=== PATIENT | male | born 1945 | race Caucasian/White ===

== ENCOUNTER 2017-04-10 14:38 | Observation (INO) ==
--- NOTE | 2017-04-10 14:55 | Emergency Department Report ---
General Adult HPI - General Stated complaint: poss stroke Time Seen by Provider: 04/10/17 14:42 Source: patient Mode of arrival: ambulatory Limitations: no limitations - History of Present Illness HPI narrative: 71-year-old male presents to the emergency department with a chief complaint of tingling on the right side of his body and right-sided facial droop. Rations states that he began experiencing symptoms 2 days ago. Symptoms have been intermittent in nature since onset. He is unsure exactly how long the symptoms have lasted. Patient states that his symptoms return to this morning. Patient states he began experiencing symptoms at approximately lunchtime today which have resolved upon arrival to the emergency department. He denies any pain or discomfort. He denies any exacerbating or remitting factors. No other complaints or associated symptoms. He was at home when the symptoms began. - Related Data Home Medications Medication Instructions Recorded Confirmed Aspirin 325 mg PO DAILY 04/10/17 04/10/17 Calcium Polycarbophil [Fiber] 625 mg PO DAILY 04/10/17 04/10/17 Lactobacillus Acidophilus 1 each PO DAILY 04/10/17 04/10/17 [Probiotic] Turmeric Root Extract [Turmeric] 500 mg PO DAILY 04/10/17 04/10/17 Allergies Allergy/AdvReac Type Severity Reaction Status Date / Time No Known Allergies Allergy Verified 04/10/17 15:11 Review of Systems Constitutional: Denies: fever, chills Eyes: Denies: eye pain, vision change ENT: Denies: ear pain, throat pain Cardiovascular: Denies: chest pain, palpitations Respiratory: Denies: cough, dyspnea Gastrointestinal: Denies: abdominal pain, nausea, vomiting, diarrhea Genitourinary: Denies: urgency, dysuria Musculoskeletal: Denies: back pain, arthralgia Integumentary: Denies: erythema, rash Neurological: Reports: paresthesias (resolved. ). Denies: headache, numbness Psychiatric: Denies: anxiety, depression Endocrine: Denies: fatigue, heat or cold intolerance Hematological/Lymphatic: Denies: easy bruising, lymphadenopathy Allergic/Immunologic: Denies: facial swelling, urticaria PFSH Negative. Surgical History: Negative. Family History: Reviewed and Noncontributory. - Social History Smoking status: Former smoker Substance use type: does not use Alcohol intake frequency: a few times a week Physical Exam - Limitations Limitations: no limitations - General General appearance: alert, in no apparent distress - Normal Exams: Head:: Normocephalic without trauma Eyes:: Pupils are PERRLA w/ EOMI, No scleral icterus, irritation, or foreign bodies noted ENMT:: No facial trauma, nasal exudates, pharyngeal erythema, or exudates are noted Dental: No fractured, loose, or missing teeth noted Neck:: Full range of motion, without adenopathy, JVD, bruits or thyromegaly Chest/Respirations:: Clear all grimm, with good airflow, and symmetry bilaterally Cardiovascular:: Regular rate and rhythm, without murmur or gallop, Pulses 2+ all extremities, capillary refill, <2 seconds all extremities Abdomen:: Bowel sounds positive, soft, non-tender, non-distended, no hepatosplenomegaly, masses or bruits noted Lymphatic:: No lymphadenopathy, or lymphedema noted Musculoskeletal:: No tenderness, or deformity noted, good range of motion, all extremities Integumentary:: No rashes, hives, or bruising noted, hair and nails, without abnormality Neurological:: Patient is alert (Alert and oriented x 3. CN 2-12 intact. Normal strength. Normal sensation. Normal speech. Normal coordination. Normal Gait. Normal Motor. Reflexes 2/4 in all ext. Absent babinski bilat. ), and oriented, cranial nerves, motor/sensory/cerebellar, exams w/o gross deficits , to observation Psychiatric:: Patient exhibits, appropriate attention, emotion and affect Course Vital Signs Temperature 97.7 F 04/10/17 14:39 Pulse Rate 87 04/10/17 14:39 Respiratory Rate 24 04/10/17 14:39 Blood Pressure 175/81 H 04/10/17 14:39 Pulse Oximetry 93 04/10/17 14:39 Temperature 97.7 F 04/10/17 14:39 Pulse Rate 87 04/10/17 14:39 Respiratory Rate 24 04/10/17 14:39 Blood Pressure 175/81 H 04/10/17 14:39 Pulse Oximetry 93 04/10/17 14:39 Medical Decision Making - MDM Narrative Medical decision making narrative: Labs / imaging were discussed in detail with the patient and family and questions are answered. Patient has taken 325 mg of aspirin which he does not normally take today prior to arrival to the emergency Department. Patient is discussed with Dr. Casillas and admitted to her service in improved condition. Patient is in agreement with the current plan of management. No further orders from accepting physician who is in agreement with the current plan of management. Patient is not a candidate for TPA as he is asymptomatic upon arrival to the emergency department. His NIH is 0. - Differential Diagnosis TIA, CVA, Metabolic Process, UTI - Lab Data Result diagrams: 04/10/17 14:55 04/10/17 14:55 Lab Results 04/10/17 04/10/17 04/10/17 Range/Units 14:55 14:55 14:55 WBC 7.5 (4.5-11.0) T/MM3 RBC 4.62 (4.50-5.90) M/MM3 Hgb 13.6 (13.5-17.5) GM/DL Hct 42.0 (41-53) % MCV 90.9 (80-100) UM3 MCH 29.4 (26-34) UUG MCHC 32.4 (31-37) GM/DL RDW Std Deviation 43.8 (36.9-50.2) FL Plt Count 256 (130-400) T/MM3 MPV 9.6 (9.4-12.4) UM3 Immature Gran % (Auto) 0.1 (0.0-0.5) % Neut % (Auto) 65.3 (33-66) % Lymph % (Auto) 27.5 (23-45) % [place] % (Auto) 5.9 (0-9.0) % Eos % (Auto) 0.7 (0-4) % Baso % (Auto) 0.5 (0-2) % Neut # (Auto) 4.9 (1.8-7.7) T/MM3 Lymph # (Auto) 2.1 (1-4.8) T/MM3 [place] # (Auto) 0.4 (0-0.8) T/MM3 Eos # (Auto) 0.1 (0-0.5) T/MM3 Baso # (Auto) 0.0 (0-0.2) T/MM3 Abs Immat Gran (auto) 0.01 (0.00-0.03) T/MM3 INR 1.08 (0.99-1.21) APTT 28.6 (24-36) SEC Turbidity < 20 (0-20) Sodium 141 (134-144) MEQ/L Potassium 4.5 (3.6-5) MEQ/L Chloride 106 (98-107) MEQ/L Carbon Dioxide 23 (22-30) MEQ/L Anion Gap 12 (5-15) MEQ/L BUN 14.0 (9-20) MG/DL Creatinine 0.8 (0.8-1.5) MG/DL GFR Calculation 96 BUN/Creatinine Ratio 18 (6-26) RATIO Glucose 156 H (75-110) MG/DL Calculated Osmolality 275 (261-280) MOSM/KG Calcium 9.2 (8.4-10.2) MG/DL Total Bilirubin 0.70 (0.20-1.30) MG/DL Icterus Index < 2 (0-7) AST 29 (17-59) U/L ALT 32 (21-72) U/L Alkaline Phosphatase 65 (38-126) U/L Troponin I < 0.012 (0-0.12) ng/ml Total Protein 7.7 (6.3-8.2) G/DL Albumin 4.4 (3.5-5.0) G/DL Globulin 3.3 (2.4-3.6) G/DL Albumin/Globulin Ratio 1.3 (1.1-2.2) RATIO Specimen Hemolysis 136 H (0-25) Ur Collection Type Urine Color (YELLOW) Urine Clarity Urine pH (5.0-8.0) Ur Specific [place] (1.015-1.025) Urine Protein (NEGATIVE) Urine Glucose (UA) (NEGATIVE) Urine Ketones (NEGATIVE) Urine Occult Blood (NEGATIVE) Urine Nitrate (NEGATIVE) Urine Bilirubin (NEGATIVE) Urine Urobilinogen (NORMAL) EU/DL Ur Leukocyte Esterase (NEGATIVE) Urinalysis Comment 04/10/17 Range/Units 15:40 WBC (4.5-11.0) T/MM3 RBC (4.50-5.90) M/MM3 Hgb (13.5-17.5) GM/DL Hct (41-53) % MCV (80-100) UM3 MCH (26-34) UUG MCHC (31-37) GM/DL RDW Std Deviation (36.9-50.2) FL Plt Count (130-400) T/MM3 MPV (9.4-12.4) UM3 Immature Gran % (Auto) (0.0-0.5) % Neut % (Auto) (33-66) % Lymph % (Auto) (23-45) % [place] % (Auto) (0-9.0) % Eos % (Auto) (0-4) % Baso % (Auto) (0-2) % Neut # (Auto) (1.8-7.7) T/MM3 Lymph # (Auto) (1-4.8) T/MM3 [place] # (Auto) (0-0.8) T/MM3 Eos # (Auto) (0-0.5) T/MM3 Baso # (Auto) (0-0.2) T/MM3 Abs Immat Gran (auto) (0.00-0.03) T/MM3 INR (0.99-1.21) APTT (24-36) SEC Turbidity (0-20) Sodium (134-144) MEQ/L Potassium (3.6-5) MEQ/L Chloride (98-107) MEQ/L Carbon Dioxide (22-30) MEQ/L Anion Gap (5-15) MEQ/L BUN (9-20) MG/DL Creatinine (0.8-1.5) MG/DL GFR Calculation BUN/Creatinine Ratio (6-26) RATIO Glucose (75-110) MG/DL Calculated Osmolality (261-280) MOSM/KG Calcium (8.4-10.2) MG/DL Total Bilirubin (0.20-1.30) MG/DL Icterus Index (0-7) AST (17-59) U/L ALT (21-72) U/L Alkaline Phosphatase (38-126) U/L Troponin I (0-0.12) ng/ml Total Protein (6.3-8.2) G/DL Albumin (3.5-5.0) G/DL Globulin (2.4-3.6) G/DL Albumin/Globulin Ratio (1.1-2.2) RATIO Specimen Hemolysis (0-25) Ur Collection Type Urine, void-cc/notcc Urine Color Yellow (YELLOW) Urine Clarity Clear Urine pH 6.0 (5.0-8.0) Ur Specific [place] 1.015 (1.015-1.025) Urine Protein Negative (NEGATIVE) Urine Glucose (UA) Negative (NEGATIVE) Urine Ketones Negative (NEGATIVE) Urine Occult Blood Negative (NEGATIVE) Urine Nitrate Negative (NEGATIVE) Urine Bilirubin Negative (NEGATIVE) Urine Urobilinogen 0.2 (NORMAL) EU/DL Ur Leukocyte Esterase Negative (NEGATIVE) Urinalysis Comment Microscopic not ind. - Radiology Data CT HEAD - No acute processes. CXR - No acute processes. - EKG Data EKG #1 EKG results narrative: Sinus rhythm. 82 bpm. No STEMI. Disposition Clinical Impression: TIA (transient ischemic attack) Qualifiers: Transient cerebral ischemia type: other Qualified Code(s): G45.8 - Other transient cerebral ischemic attacks and related syndromes Disposition: 02 To [facility] Condition: Improved Time of Disposition: 16:10 (Admit. Dr. Casillas. ) - Seen By: physician
[2017-04-10] MEDS: SALINE FLUSH 10ml SYRINGE IVF PRN ×2 (15:05→18:40)
--- NOTE | 2017-04-10 15:33 | CT Scan Report ---
Indication: tia symptoms PROCEDURE: CT head/brain wo con: Encounter: Initial Comparison: None Technique: Axial CT images through the head were performed without contrast. Iterative Reconstruction dose reducing technique was utilized. FINDINGS: The ventricles are of normal size, shape, and contour for the patient's age. There are scattered areas of low attenuation in the white matter which most likely represent changes from chronic microvascular ischemia. The brainstem, cerebellum, and cerebral hemispheres otherwise have a normal morphology and CT attenuation. There is no evidence of midline displacement. No hemorrhage, signs of acute territorial stroke, mass effect, mass lesions, or edema is evident. The visualized portions of the skull base, midface, and calvarium demonstrate no abnormality. The paranasal sinuses are well aerated and free of significant disease. The tympanic and mastoid cavities appear normal. IMPRESSION: No acute intracranial abnormality or hemorrhage. If there is continued clinical concern for acute ischemia, MRI would be more sensitive for further evaluation. .
--- NOTE | 2017-04-10 15:33 | XRay Report ---
Indication: tia PROCEDURE: XR chest 1V: Encounter: Initial Comparison: None FINDINGS: The lungs are clear. There is no abnormal airspace opacity, pleural effusion or pneumothorax identified. The heart size, pulmonary vasculature and mediastinum are within normal limits. No significant skeletal abnormality is seen. IMPRESSION: No acute cardiopulmonary abnormality. .
--- NOTE | 2017-04-10 17:01 | History & Physical Report ---
History of Present Illness Date: 04/10/17 Chief complaint: R sided weakness HPI: Mr. Abdi is a 71 yo male who presents to ED with his daughter for R sided weakness. States sxs started 2 days ago with complete R sided numbness which lasted for about an hour, resolved and then returned again an hour later. Yesterday he had some nausea and "just didn't feel right." Today he had the R sided numbness again and noted numbness to the R side of his face as well. Mentions he had trouble controlling his R hand when writing earlier today. Has had no change in speech or trouble with swallowing. No h/o CVA or cardiac issues. He takes a daily baby ASA and took a full strength ASA yest and today due to his sxs. CT head and CXR performed in ER were neg. EKG shows a RBBB, NSR - no STEMI. No comparison available. Troponin neg. All other labs nl except glucose of 156. BP on admission 175/81. Review of Systems All systems PM: 10-point ROS was reviewed, no additional remarkable complaints except (R sided weakness per HPI, "bowel issues") Past Medical History elevated BP but never had prescription meds Surgical History: Negative. 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 Medications Home Medications Medication Instructions Recorded Confirmed Type Aspirin 325 mg PO DAILY 04/10/17 04/10/17 History Calcium Polycarbophil [Fiber] 625 mg PO DAILY 04/10/17 04/10/17 History Lactobacillus Acidophilus 1 each PO DAILY 04/10/17 04/10/17 History [Probiotic] Turmeric Root Extract [Turmeric] 500 mg PO DAILY 04/10/17 04/10/17 History Allergies Allergy/AdvReac Type Severity Reaction Status Date / Time No Known Allergies Allergy Verified 04/10/17 15:11 Exam Vital Signs: Temperature 97.7 F 04/10/17 14:39 Pulse Rate 87 02/01/18 14:39 Respiratory Rate 24 04/10/17 14:39 Blood Pressure 175/81 H 04/10/17 14:39 Pulse Oximetry 93 04/10/17 14:39 - Constitutional Present: no acute distress, well nourished, well developed - Routine HEENT Exam Head: Present: normocephalic, atraumatic Eye: Present: EOMI, PERRL ENT: Present: mucous membranes moist, oropharynx clear - Routine Neck Exam Present: supple. Absent: lymphadenopathy, thyromegaly - Routine Respiratory Exam Present: CTA bilaterally. Absent: wheezes - Routine Cardiovascular Exam Present: RRR, no murmur - Routine Abdominal Exam Present: soft, normoactive bowel sounds. Absent: tenderness, distended - Routine Extremities Exam Present: no edema, normal capillary refill - Routine Skin Exam Present: dry, warm - Routine Neurological Exam Present: alert, oriented X3, CN II-XII intact, moving all extremities, normal tone, normal speech. Absent: sensory deficit, motor deficit, pronator drift, altered mental status, abnormal gait, nystagmus, hemineglect, facial asymmetry, tremors - Routine Psychiatric Exam Present: normal affect, cooperative Results - Labs CBC & Chem 7: 04/10/17 14:55 04/10/17 14:55 - Imaging and Cardiology CT scan - head Additional comments: Date of Exam: 04/10/17 Indication: tia symptoms PROCEDURE: CT head/brain wo con: Technique: Axial CT images through the head were performed without contrast. Iterative Reconstruction dose reducing technique was utilized. FINDINGS: The ventricles are of normal size, shape, and contour for the patient's age. There are scattered areas of low attenuation in the white matter which most likely represent changes from chronic microvascular ischemia. The brainstem, cerebellum, and cerebral hemispheres otherwise have a normal morphology and CT attenuation. There is no evidence of midline displacement. No hemorrhage, signs of acute territorial stroke, mass effect, mass lesions, or edema is evident. The visualized portions of the skull base, midface, and calvarium demonstrate no abnormality. The paranasal sinuses are well aerated and free of significant disease. The tympanic and mastoid cavities appear normal. IMPRESSION: No acute intracranial abnormality or hemorrhage. If there is continued clinical concern for acute ischemia, MRI would be more sensitive for further evaluation. Chest x-ray Additional comments: Date of Exam: 04/10/17 Indication: tia PROCEDURE: XR chest 1V: FINDINGS: The lungs are clear. There is no abnormal airspace opacity, pleural effusion or pneumothorax identified. The heart size, pulmonary vasculature and mediastinum are within normal limits. No significant skeletal abnormality is seen. IMPRESSION: No acute cardiopulmonary abnormality. Assessment and Plan (1) TIA (transient ischemic attack) Current visit: Yes Status: Acute Assessment and Plan: Assessment: TIA - transient R sided weakness HTN Hyperglycemia - (156) present on admission Plan: Admit to observation status under the hospitalist service, Dr. Bishop attending EKG, CXR and CT head performed in ER. Carotid sono, echo, MRI brain for further w-u of TIA. Monitor on telemetry for arrhythmias Start Plavix and Lipitor for secondary prevention. Check fasting lipids in am. Permissive control of BP. Check A1C and pp accuchecks given his hyperglycemia. SCD's for VTE prophylaxis. Pt wishes to be a full code. DPOA-H - daughters Anitra and Hamida Care to return to Dr. Beltran Ewing on dismissal. DVT Prophylaxis: SCD's Resuscitation Status: Full Code - Physician Narrative Physician: Tomas Bishop MD Narrative: Date: 04/10/17 Time: 180 I have independently evaluated and examined this patient. I reviewed the chart, the patient's history, and the [employer] OPERATOR/PA's documented findings as above. We discussed and formulated the assessment and plan as above with additions as below: Mr. Abdi had numbness from his right shoulder down to his wrist briefly when seen. He has had similar symptoms several times in the past couple of days. He takes a baby aspirin daily and took a 325 mg ASA the past 2 days. He denies other health problems. His BP was elevated in ED. NAD. CTAB. RRR w/o murmur. S/NT/ND +BS. No edema. CN II-XII intact. Motor is 5/5 in all extremities. No numbness. Patient will be observed and stroke risk factors evaluated. Will start Plavix, Lipitor. BP goal will be <160 for now. Will check A1c and monitor accuchecks for now Hospital Course Summary Disclaimer: The visit summary below is not to be considered part of the above Progress Note. Hospital Course: 04/10/17 - hospital admission for observation Admit to observation status under the hospitalist service, Dr. Bishop attending EKG, CXR and CT head performed in ER. Carotid sono, echo, MRI brain for further w-u of TIA. Monitor on telemetry for arrhythmias Start Plavix and Lipitor for secondary prevention. Check fasting lipids in am. Permissive control of BP. Check A1C and pp accuchecks given his hyperglycemia. SCD's for VTE prophylaxis. Pt wishes to be a full code. DPOA-H - daughters Anitra and Hamida Care to return to Dr. Beltran Ewing on dismissal.
[2017-04-10 17:18] VITALS: BMI 29.9
[2017-04-10] MEDS ORDERED: HYDRALAZINE 20 MG/ML INJECTION IVP PRN (17:59)
[2017-04-10] MEDS: CLOPIDOGREL 75 MG TABLET PO SCH (18:39)
[2017-04-10] MEDS ORDERED: RANITIDINE 300 MG TABLET PO PRN (18:45)
[2017-04-10] MEDS ORDERED: ATORVASTATIN 40 MG TABLET PO SCH (21:00)
[2017-04-11 07:47] VITALS: BP 131/74; RESP 20; TEMP 96.3; O2SAT 96
--- NOTE | 2017-04-11 08:55 | Ultrasound Report ---
Indication: TIA, r sided weakness PROCEDURE: US carotid doppler BI: TECHNIQUE: Grayscale, color and duplex Doppler imaging was performed of the carotid systems bilaterally. Velocities in cm/sec - validated velocity measurements with angiographic measurements, velocity criteria are extrapolated from diameter data as defined by the Society of Radiologists in Ultrasound Consensus Conference Radiology 2003; 229;340-346. RIGHT: PSV ICA 93 EDV ICA 25 PSV CCA 98.1 EDV CCA 16 PSV ECA 131 ICA Diameter reduction <20% (0.8-1.0)% LEFT: PSV ICA 125 EDV ICA 34.4 PSV CCA 112 EDV CCA 19.9 PSV ECA 140 ICA Diameter reduction 40-50% The right vertebral artery is patent with cephalic flow. The left vertebral artery is patent with cephalic flow. IMPRESSION: 40-50% stenosis of the left proximal ICA. No hemodynamically significant carotid stenosis on the right. There is a preliminary report by [facility]. .
[2017-04-11] MEDS ORDERED: LISINOPRIL 5 MG TABLET PO SCH (09:15)
--- NOTE | 2017-04-11 09:27 | Magnetic Resonance Report ---
Indication: TIA, r sided weakness PROCEDURE: MR head/brain wo con: Encounter: Initial Comparisons: None. Technique: Multiplanar, multisequence, MR imaging of the head without contrast was acquired. FINDINGS: The ventricles are of normal size, shape, and contour for the patient's age. There are small nonspecific punctate areas of T2-weighted and T2 FLAIR weighted signal abnormality in the deep frontoparietal white matter that most likely represent small vessel ischemic disease. This is advanced for the patient's age. The brain stem, cerebellum, and cerebral hemispheres otherwise have a normal morphologic appearance as well as MR signal intensity on all pulse sequences. There are no areas of restricted diffusion on diffusion weighted imaging to suggest an acute infarct. There is no evidence of an intracranial mass lesion, intracranial hemorrhage, or hydrocephalus. The visualized portions of the orbits, calvarium, paranasal sinuses, and skull base demonstrate no significant abnormality. IMPRESSION: No acute intracranial abnormality or infarct. 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 .
[2017-04-11] MEDS: CLOPIDOGREL 75 MG TABLET PO SCH (09:32)
[2017-04-11] MEDS: SALINE FLUSH 10ml SYRINGE IVF PRN (09:33)
--- NOTE | 2017-04-11 10:50 | Discharge Summary ---
Discharge Information Date of admission: 04/10/17 16:20 Anticipated date of discharge: 04/11/17 Attending Physician: Tomas Bishop IV, MD Primary care physician: Beltran Ewing MD Consults: wellness director - consult for prediabetes - Discharge Diagnosis (1) TIA (transient ischemic attack) Status: Acute TIA - transient R sided weakness HTN Prediabetes - new dx (hemoglobin A1c 6.1%) Left carotid stenosis 40-50% - Procedures Procedures: Date of Exam: 04/10/17 Indication: TIA, r sided weakness PROCEDURE: US carotid doppler BI: TECHNIQUE: Grayscale, color and duplex Doppler imaging was performed of the carotid systems bilaterally. Velocities in cm/sec - validated velocity measurements with angiographic measurements, velocity criteria are extrapolated from diameter data as defined by the Society of Radiologists in Ultrasound Consensus Conference Radiology 2003; 229;340-346. RIGHT: PSV ICA 93 EDV ICA 25 PSV CCA 98.1 EDV CCA 16 PSV ECA 131 ICA Diameter reduction <20% (0.8-1.0)% LEFT: PSV ICA 125 EDV ICA 34.4 PSV CCA 112 EDV CCA 19.9 PSV ECA 140 ICA Diameter reduction 40-50% The right vertebral artery is patent with cephalic flow. The left vertebral artery is patent with cephalic flow. IMPRESSION: 40-50% stenosis of the left proximal ICA. No hemodynamically significant carotid stenosis on the right. Echo results pending - will send copy to Dr. Ewing when resulted. - Laboratory Labs: 04/11/17 04:29 04/11/17 04:29 - Radiology Radiology: Date of Exam: 04/11/17 Indication: TIA, r sided weakness PROCEDURE: MR head/brain wo con: Technique: Multiplanar, multisequence, MR imaging of the head without contrast was acquired. FINDINGS: The ventricles are of normal size, shape, and contour for the patient's age. There are small nonspecific punctate areas of T2-weighted and T2 FLAIR weighted signal abnormality in the deep frontoparietal white matter that most likely represent small vessel ischemic disease. This is advanced for the patient's age. The brain stem, cerebellum, and cerebral hemispheres otherwise have a normal morphologic appearance as well as MR signal intensity on all pulse sequences. There are no areas of restricted diffusion on diffusion weighted imaging to suggest an acute infarct. There is no evidence of an intracranial mass lesion, intracranial hemorrhage, or hydrocephalus. The visualized portions of the orbits, calvarium, paranasal sinuses, and skull base demonstrate no significant abnormality. IMPRESSION: No acute intracranial abnormality or infarct. 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 History of Present Illness HPI: Mr. Abdi is a 71 yo male who presents to ED with his daughter for R sided weakness. States sxs started 2 days ago with complete R sided numbness which lasted for about an hour, resolved and then returned again an hour later. Yesterday he had some nausea and "just didn't feel right." Today he had the R sided numbness again and noted numbness to the R side of his face as well. Mentions he had trouble controlling his R hand when writing earlier today. Has had no change in speech or trouble with swallowing. No h/o CVA or cardiac issues. He takes a daily baby ASA and took a full strength ASA yest and today due to his sxs. CT head and CXR performed in ER were neg. EKG shows a RBBB, NSR - no STEMI. No comparison available. Troponin neg. All other labs nl except glucose of 156. BP on admission 175/81. Objective Vital signs: Temperature 96.3 F L 04/11/17 07:41 Pulse Rate 65 04/11/17 07:41 Respiratory Rate 20 04/11/17 07:41 Blood Pressure 131/74 04/11/17 07:41 Pulse Oximetry 96 04/11/17 07:41 Height/Weight/BMI: Height 1.78 m Weight 91.2 kg Body Mass Index 29.9 - Constitutional Present: no acute distress, well nourished, well developed - Routine HEENT Exam Head: Present: normocephalic, atraumatic - Routine Respiratory Exam Present: CTA bilaterally. Absent: wheezes - Routine Cardiovascular Exam Present: RRR, no murmur - Routine Abdominal Exam Present: soft, non distended, non tender - Routine Extremities Exam Present: no edema, normal capillary refill - Routine Skin Exam Present: dry, warm - Routine Neurological Exam Present: alert, oriented X3 - Routine Lymphatic Exam Lymphatic: Absent: adenopathy - Routine Psychiatric Exam Present: normal affect, cooperative Hospital Course This is a general summary of the patient's hospital course. For more details refer to the complete medical record. Hospital course: Patient has had no further symptoms. MRI with no acute intracranial abnormality or infarct. Advanced chronic microvascular ischemia and white matter disease. Echo results are pending. Will send copy to Dr. Ewing when results are available. Carotid Doppler showed 40-50% stenosis of the left proximal ICA. Patient was started on Lipitor 80 mg daily and Plavix 75 mg daily for secondary prevention given that he was taking aspirin daily at the time symptoms occurred. He was started on lisinopril 5 mg for blood pressure control. Stop Turmeric. He met with smoke eater for education on prediabetes. Follow-up with PCP in a week. Labs to be done in 4-[address] Ewing to f -u initiation of lisinopril and Lipitor. Time spent with patient: greater than 35 minutes Resuscitation Status: Full Code Discharge Plan - Discharge Disposition Discharge Date: 04/11/17 Disposition: Discharged Home, Self-Care *Condition: Improved Reason For Visit (Visit label in EMR): TIA - Discharge Medications *Discharge Medications: New Atorvastatin [Lipitor] 80 mg PO HS #30 tab Clopidogrel [Plavix] 75 mg PO DAILY #30 tab Lisinopril [Prinivil] 5 mg PO DAILY #30 tab Continue Lactobacillus Acidophilus [Probiotic] 1 each PO DAILY Calcium Polycarbophil [Fiber] 625 mg PO DAILY Discontinued Aspirin 325 mg PO DAILY Turmeric Root Extract [Turmeric] 500 mg PO DAILY - Discharge Packet/Instructions *Diet: carbohydrate controlled, heart healthy, low salt diet *Activity: as tolerated. Daily walking/exercise encouraged. *Pain Management/Treatment: n/a *Wound Care: n/a Additional Instructions: Do not take the turmeric as it interacts with the Plavix. Work on trying to get daily exercise (walking at least 30 minutes every day is ideal) and weight loss. You will need follow up labwork in 4-[address] Ewing can order *Expected Signs/Symptoms: hopefully you will have no further numbness/weakness *Notify Physician if: your symptoms of numbness/weakness return *During Business Hours Contact: Dr. Ewing's office *After Business Hours Contact: Dr. Ewing's office and follow after hours instructions *Pending Lab/Results: Follow up w/your PCP (will send result of echocardiogram to Dr. Ewing's office) - Referrals/Follow Up *Referrals/Follow Up: Beltran Ewing MD [Family Provider] - 04/15/17 11:15 am (f-u in 1 week) - Patient Handouts Patient Handouts: Transient Ischemic Attack (GEN) - Dismissal Complete Discharge Instructions are:: Incomplete Physician Narrative - Narrative Physician: Tomas Bishop MD Attestation Narrative: Date: 04/11/17 Time: 1620 I have independently evaluated and examined this patient. I reviewed the chart, the patient's history, and the MUSEUM OR ZOO DIRECTOR/PA's documented findings as above. We discussed and formulated the assessment and plan as above with additions as below: Patient doing well. No return of numbness. MRI, carotid doppler, lab d/w patient and family. All questions answered. NAD. CTAB. RRR. No focal defecit. Stable for dismissal. f/u with Dr. Ewing
[2017-04-11 11:00] VITALS: PULSE 61
--- NOTE | 2017-04-12 15:58 | Echocardiogram ---
DATE OF PROCEDURE April 10, 2017 This is a two-dimensional echo with spectral Doppler, color-flow and M-mode. It was obtained in a patient with TIA. This is a technically difficult study. Left atrial dimension is normal. Left ventricular end-diastolic dimension is normal. Left ventricular wall thickness is normal. LV systolic function is normal with ejection fraction of about 70%. Right atrium is normal. Right ventricle is normal. Aortic root dimension is normal. Mitral valve is morphologically normal. Aortic valve appears to be a trileaflet structure with no stenosis. Mild aortic insufficiency is present. Tricuspid valve shows mild tricuspid regurgitation with normal estimated pulmonary artery systolic pressure of 24. Pulmonary valve shows no pulmonary insufficiency. There is no pericardial effusion. Grossly, there is no intracardiac thrombus or mass. IMPRESSION 1. Technically difficult study. 2. Normal LV systolic function with ejection fraction of about 70%. 3. Left ventricular hypertrophy. 4. Mild aortic insufficiency. 5. Mild tricuspid regurgitation with normal estimated pulmonary artery systolic pressure of 24. 6. Grossly, no intracardiac thrombus or mass. MTDD
== END 2017-04-11 13:55 | disposition home or self-care (01) ==
LOC: MED 14:38 → ED 14:38 → MED 16:48
PROVIDERS: ADMIT Hospitalist; ATTEND Hospitalist

== ENCOUNTER 2017-04-11 17:04 | Observation (INO) ==
--- NOTE | 2017-04-11 17:18 | Emergency Department Report ---
General Adult HPI - General Stated complaint: stroke like symptoms Time Seen by Provider: 04/11/17 17:12 Source: patient Mode of arrival: ambulatory Limitations: no limitations - History of Present Illness HPI narrative: 71-year-old male presents to the emergency department with a chief complaint of a tingling sensation to the R side of his body and face. Patient noted onset of symptoms approximately 1 hour prior to arrival to the emergency department today. Patient was discharged home from [facility] were he was evaluated did for TIA/stroke symptoms with an unremarkable evaluation. He denies any pain or discomfort. He was at home when his symptoms began. Symptoms have resolved upon arrival to the emergency department. He has no other complaints or associated symptoms. Patient did take both aspirin and Plavix today prior to arrival to the emergency department. - Related Data Home Medications Medication Instructions Recorded Confirmed Calcium Polycarbophil [Fiber] 625 mg PO DAILY 04/10/17 04/11/17 Lactobacillus Acidophilus 1 cap PO DAILY 04/10/17 04/11/17 [Probiotic] Previous Rx's Medication Instructions Recorded Atorvastatin [Lipitor] 80 mg PO HS #30 tab 04/11/17 Clopidogrel [Plavix] 75 mg PO DAILY #30 tab 04/11/17 Lisinopril [Prinivil] 5 mg PO DAILY #30 tab 04/11/17 Allergies Allergy/AdvReac Type Severity Reaction Status Date / Time No Known Allergies Allergy Verified 04/11/17 17:17 Review of Systems Constitutional: Denies: fever, chills Eyes: Denies: eye pain, vision change ENT: Denies: ear pain, throat pain Cardiovascular: Denies: chest pain, palpitations Respiratory: Denies: cough, dyspnea Gastrointestinal: Denies: abdominal pain, nausea, vomiting, diarrhea Genitourinary: Denies: urgency, dysuria Musculoskeletal: Denies: back pain, arthralgia Integumentary: Denies: erythema, rash Neurological: Reports: paresthesias. Denies: headache, numbness Psychiatric: Denies: anxiety, depression Endocrine: Denies: fatigue, heat or cold intolerance Hematological/Lymphatic: Denies: easy bruising, lymphadenopathy Allergic/Immunologic: Denies: facial swelling, urticaria PFSH Patient Stated Medical History Other HEENT Yes: WEARS GLASSES Surgical History: Negative. Family History: Reviewed and Noncontributory. - Social History Smoking status: Former smoker Substance use type: does not use Alcohol intake frequency: a few times a month Current residence: Apartment/Private Home Physical Exam - Limitations Limitations: no limitations - General General appearance: alert, in no apparent distress - Normal Exams: Head:: Normocephalic without trauma Eyes:: Pupils are PERRLA w/ EOMI, No scleral icterus, irritation, or foreign bodies noted ENMT:: No facial trauma, nasal exudates, pharyngeal erythema, or exudates are noted Dental: No fractured, loose, or missing teeth noted Neck:: Full range of motion, without adenopathy, JVD, bruits or thyromegaly Chest/Respirations:: Clear all grimm, with good airflow, and symmetry bilaterally Cardiovascular:: Regular rate and rhythm, without murmur or gallop, Pulses 2+ all extremities, capillary refill, <2 seconds all extremities Abdomen:: Bowel sounds positive, soft, non-tender, non-distended, no hepatosplenomegaly, masses or bruits noted Lymphatic:: No lymphadenopathy, or lymphedema noted Musculoskeletal:: No tenderness, or deformity noted, good range of motion, all extremities Integumentary:: No rashes, hives, or bruising noted, hair and nails, without abnormality Neurological:: Patient is alert (Alert and oriented x 3. CN 2-12 intact. Muscle strength. Normal sensation. Normal motor. Normal coordination. Normal gait. Reflexes 2/4 in all extremities. Absent Babinski bilaterally. No focal neurologic deficit. Unremarkable neurologic examination.), and oriented, cranial nerves, motor/sensory/cerebellar, exams w/o gross deficits, to observation Psychiatric:: Patient exhibits, appropriate attention, emotion and affect Course Vital Signs Temperature 98.7 F 04/11/17 17:07 Pulse Rate 77 04/11/17 17:07 Respiratory Rate 16 04/11/17 17:07 Blood Pressure 163/79 H 04/11/17 17:07 Pulse Oximetry 93 04/11/17 17:07 Temperature 97.0 F 04/12/17 07:51 Pulse Rate 72 04/12/17 07:51 Respiratory Rate 16 04/12/17 07:51 Blood Pressure 121/74 04/12/17 07:51 Pulse Oximetry 96 04/12/17 07:51 Medical Decision Making - MDM Narrative Medical decision making narrative: Labs / imaging were discussed in detail with the patient and questions are answered. Patient has had his symptoms resolved upon arrival to the emergency department. Patient is not a candidate for TPA therapy as his NIH is 0 and his symptoms have completely resolved. Patient has taken 325 mg of aspirin and 75 mg of Plavix today prior to arrival to the emergency department. Patient is in agreement with the current plan of management. Patient is discussed with Dr. Bishop the hospitalist who discharged the patient earlier today and patient will be re-admitted to his service for further evaluation and treatment. Dr. Bishop to make his own neurology consultation. Patient is admitted to the hospital in improved condition. No further orders from accepting physician who is in agreement with the current plan of management. Any further antiplatelet therapy will be handled by accepting physician. - Differential Diagnosis TIA, CVA, UTI, Metabolic disorder - Lab Data Result diagrams: 04/11/17 17:49 04/11/17 17:49 Lab Results 04/11/17 04/11/17 04/11/17 Range/Units 17:49 17:49 17:49 WBC 8.6 (4.5-11.0) T/MM3 RBC 4.79 (4.50-5.90) M/MM3 Hgb 14.2 (13.5-17.5) GM/DL Hct 43.3 (41-53) % MCV 90.4 (80-100) UM3 MCH 29.6 (26-34) UUG MCHC 32.8 (31-37) GM/DL RDW Std Deviation 43.6 (36.9-50.2) FL Plt Count 254 (130-400) T/MM3 MPV 9.4 (9.4-12.4) UM3 Immature Gran % (Auto) 0.1 (0.0-0.5) % Neut % (Auto) 68.8 H (33-66) % Lymph % (Auto) 23.5 (23-45) % Barbour % (Auto) 7.1 (0-9.0) % Eos % (Auto) 0.3 (0-4) % Baso % (Auto) 0.2 (0-2) % Neut # (Auto) 5.9 (1.8-7.7) T/MM3 Lymph # (Auto) 2.0 (1-4.8) T/MM3 Barbour # (Auto) 0.6 (0-0.8) T/MM3 Eos # (Auto) 0.0 (0-0.5) T/MM3 Baso # (Auto) 0.0 (0-0.2) T/MM3 Abs Immat Gran (auto) 0.01 (0.00-0.03) T/MM3 INR 1.16 (0.99-1.21) APTT 27.8 (24-36) SEC Turbidity < 20 (0-20) Sodium 142 (134-144) MEQ/L Potassium 4.3 (3.6-5) MEQ/L Chloride 108 H (98-107) MEQ/L Carbon Dioxide 23 (22-30) MEQ/L Anion Gap 11 (5-15) MEQ/L BUN 16.0 (9-20) MG/DL Creatinine 0.9 (0.8-1.5) MG/DL GFR Calculation 84 BUN/Creatinine Ratio 18 (6-26) RATIO Glucose 95 (75-110) MG/DL Calculated Osmolality 274 (261-280) MOSM/KG Calcium 9.7 (8.4-10.2) MG/DL Total Bilirubin 0.80 (0.20-1.30) MG/DL Icterus Index < 2 (0-7) AST 22 (17-59) U/L ALT 37 (21-72) U/L Alkaline Phosphatase 78 (38-126) U/L Troponin I < 0.012 (0-0.12) ng/ml Total Protein 7.9 (6.3-8.2) G/DL Albumin 4.5 (3.5-5.0) G/DL Globulin 3.4 (2.4-3.6) G/DL Albumin/Globulin Ratio 1.3 (1.1-2.2) RATIO Specimen Hemolysis 40 H (0-25) - Radiology Data CT head: No acute processes. Chest x-ray: No acute processes. Similar to comparison exam. - EKG Data EKG #1 EKG results narrative: Sinus rhythm. 75 bpm. Right bundle branch block. No STEMI. Similar to comparison EKG Disposition Clinical Impression: tia TIA (transient ischemic attack) Qualifiers: Transient cerebral ischemia type: other Qualified Code(s): G45.8 - Other transient cerebral ischemic attacks and related syndromes Disposition: To [facility] Acute Care Condition: Stable Time of Disposition: 18:10 (Admit. Dr. Bishop. ) - Seen By: physician
[2017-04-11] MEDS: SALINE FLUSH 10ml SYRINGE IVF PRN (17:52)
[2017-04-11] MEDS ORDERED: HYDRALAZINE 20 MG/ML INJECTION IVP PRN (20:03)
[2017-04-11] MEDS ORDERED: ATORVASTATIN 40 MG TABLET PO SCH (21:00)
--- NOTE | 2017-04-11 21:14 | History & Physical Report ---
- History and Physical History and Physical: 71 yo male admitted 04/10 with TIA. He was dismissed earlier today. While here he had an 1) MRI with no acute intracranial abnormality or infarct. Advanced chronic microvascular ischemia and white matter disease. 2) Echo and results are pending. 3) Carotid Doppler showed 40-50% stenosis of the left proximal ICA. Patient was started on Lipitor 80 mg daily and Plavix 75 mg daily for secondary prevention given that he was taking aspirin daily at the time symptoms occurred. He was started on lisinopril 5 mg for blood pressure control. Not long after he got home, he had a reoccurrence of right-side numbness. It started in his right hand and went up to his shoulder. Then it went to his right leg and around his mouth. It lasted about 15 minutes. He could not raise his right arm at that time. PMHx, PSHx, FHx, SHx: unchanged ROS: see above. Remainder of complete ROS is negative. Physical Exam NAD. CTAB. RRR w/o murmur. S/NT/ND +BS. No edema. CN II-XII intact. Motor is 5/5 in all extremities. No numbness. Impression recurrent TIAs HTN pre-diabetes Plan Will change from Plavix to Aggrenox. Will get CTA of the brain. Will consult neurology. Continue Lipitor and Lisinopril. May need to consider evaluation for carotid intervention.
[2017-04-12 02:34] VITALS: BMI 29.0
[2017-04-12] MEDS ORDERED: SALINE FLUSH 10ml SYRINGE ONE (06:01)
[2017-04-12] MEDS ORDERED: IOHEXOL 350mg/ml 75ml INJECTION ONE (06:01)
[2017-04-12] MEDS ORDERED: LISINOPRIL 5 MG TABLET PO SCH (09:00)
[2017-04-12] MEDS: ENOXAPARIN 40 MG/0.4 ML INJECTION SQ SCH (10:03)
[2017-04-12] MEDS: CALCIUM POLYCARBOPHIL 625 MG TABLET PO SCH (10:04)
[2017-04-12] MEDS: ASPIRIN/DIPYRIDAMOLE 25 MG/200 MG CAPSULE PO SCH ×2 (10:05→20:11)
[2017-04-12] MEDS: --POM--LISINOPRIL 5 MG TABLET PO SCH (10:06)
--- NOTE | 2017-04-12 10:06 | Progress Note ---
- Date 04/12/17 Subjective: Patient seen this morning eating breakfast. Has had no further TIA sxs since readmission last night. Dr. Rasmussen saw pt this am. Pt had CTA head this am as well. He has no CP, SOA, n/v, just feels anxious re: his sxs. Objective Vital signs: Temperature 97.0 F 04/12/17 07:51 Pulse Rate 72 04/12/17 07:51 Respiratory Rate 16 04/12/17 07:51 Blood Pressure 121/74 04/12/17 07:51 Pulse Oximetry 96 04/12/17 07:51 Height/Weight/BMI: Height 1.78 m Weight 90.5 kg Body Mass Index 29.0 - Constitutional Present: no acute distress, well nourished, well developed - Routine HEENT Exam Head: Present: normocephalic, atraumatic - Routine Respiratory Exam Present: CTA bilaterally. Absent: wheezes - Routine Cardiovascular Exam Present: RRR, no murmur - Routine Abdominal Exam Present: soft, non distended, non tender - Routine Extremities Exam Present: no edema, normal capillary refill - Routine Skin Exam Present: dry, warm - Routine Neurological Exam Present: alert, oriented X3, CN II-XII intact - Routine Lymphatic Exam Lymphatic: Absent: adenopathy - Routine Psychiatric Exam Present: normal affect, cooperative Results - Labs CBC & Chem 7: 04/11/17 17:49 04/11/17 17:49 - Imaging and Cardiology CTA head Additional comments: [facility] report - no acute findings. Assessment and Plan Assessment and Plan: Assessment TIA-recurrent transient right-sided numbness Hypertension Diabetes Plan Dr. Rasmussen consulted. He recommends patient remain in the hospital until official read on CTA head is completed. Agrees with Aggrenox and Lovenox. Could consider Coumadin as an alternative treatment as well. If patient continues to have symptoms would consider cerebral angiogram. Continue patient on Aggrenox and Lovenox at this time, in addition to his Lipitor and lisinopril. Continue to monitor on telemetry. - Physician Narrative Physician: Tomas Bishop MD Narrative: Date: 04/12/17 Time: 1420 I have independently evaluated and examined this patient. I reviewed the chart, the patient's history, and the LENS ENGRAVER/PA's documented findings as above. We discussed and formulated the assessment and plan as above with additions as below: Patient resting comfortably with multiple family members present. He has had no further numbness or weakness. NAD. RRR. CTAB. S/NT/ND +BS. No edema. No focal deficit. Preliminary read of CTA of head had no high grade stenosis or acute intracranial process. Appreciate Dr. Rasmussen's consult. Lovenox at ppx dose started. Will increase lovenox to 1mg/kg bid and start coumadin if tia sx repeat. d/w Dr. Rasmussen. BP elevated last evening but 121/74 today. Will monitor on Lisinopril 5 mg. Will increase if BP elevated again. Hospital Course Summary Disclaimer: The visit summary below is not to be considered part of the above Progress Note. Hospital Course: 04/11/17-hospital readmission Patient was discharged earlier today and was readmitted this evening due to recurrence of full right-sided numbness with some weakness of the arm .Will change from Plavix to Aggrenox. Will get CTA of the brain. Will consult neurology. Continue Lipitor and Lisinopril. May need to consider evaluation for carotid intervention. 04/12/17 Dr. Rasmussen consulted. He recommends patient remain in the hospital until official read on CTA head is completed. Agrees with Aggrenox and Lovenox. Could consider Coumadin as an alternative treatment as well. If patient continues to have symptoms would consider cerebral angiogram. Continue patient on Aggrenox and Lovenox at this time, in addition to his Lipitor and lisinopril. Continue to monitor on telemetry.
--- NOTE | 2017-04-12 10:59 | Consultation ---
DATE OF CONSULTATION 04/12/[address] Bishop CHIEF COMPLAINT Right-sided weakness and numbness. HISTORY OF PRESENT ILLNESS Patient is a 71-year-old male with history of hypertension, hypercholesterolemia and mild obesity. The patient presented to [facility] on April 10 with symptoms of right-sided numbness, weakness and coordination problem. His symptoms started two days prior to the initial admission and lasted for about 15 minutes and numbness traveled in his arm all the way up to the shoulder, then his leg was involved, then his face and then he had some weakness and heaviness. The symptoms lasted for about 15 minutes and he was able to go back to baseline. The patient did not come to the hospital at that point and did not seek medical attention. His symptoms recurred on and lasted for the same amount of time. This is when he was admitted for observation overnight. He had an MRI of the brain that showed no acute ischemic changes and no bleed. His carotid Doppler showed a moderate stenosis in the left internal carotid artery rated at 40%-50%. He also had an echocardiogram and the results have been pending. The patient's blood pressure has been in the 150-160/90 range. He denies having any headache. The patient was sent home after 24-hour observation and when he got home he had similar symptoms lasting for about 15 minutes affecting his right arm and leg with numbness and weakness. The patient is back to baseline at the present time. He has had no other symptoms since then. The patient was started initially on Plavix after the initial event and then this was changed to Aggrenox during this hospitalization. He had a CT angiogram earlier today that showed no significant stenosis in any of the major arteries. The official result is still pending. The patient denies having prior stroke or heart disease in the past. He had no history of head injury or trauma in the past 5-10 years. His blood pressure has been stable in the 150/90 range. On physical examination the patient was awake, alert, oriented x 3. Pupils were round, reactive and equal. Extraocular muscles were intact. Visual field was full. Speech was fluent. Motor examination was 5/5 in all extremities. Sensory examination was symmetrical for light touch, pinprick and vibration sensation. Deep tendon reflexes were 2-/4. Plantar reflexes were in flexion bilaterally. The patient has hammertoes and high arches which can be a sign of hereditary neuropathy. Coordination for [id number] was borderline bilaterally. Gait was steady, wide-based and the patient had no difficulty turning and moving backwards and forwards. ASSESSMENT 1. Recurrent TIA affecting the right side of his body with weakness, numbness and coordination problem. This can be a manifestation of crescendo TIA which can be associated with atherosclerotic disease in the affected vascular territory. The carotid Doppler failed to show any significant stenosis. The CT angiogram result is still pending but after reviewing the images I did not see any major blockages in the arteries. The patient has done well on the Aggrenox 25/200 mg p.o. b.i.d. His blood pressure has been well maintained with medication with the upper range of normal to slightly elevated blood pressure which is acceptable after stroke. 2. No evidence of seizure or change in mental status concerning for sequela of head injury. PLAN 1. Continue Aggrenox 25/200 mg p.o. b.i.d. 2. Consider adding Lovenox for DVT prophylaxis. 3. If patient's symptoms recur again Aggrenox can be changed to Coumadin and Lovenox can be increased to therapeutic dosage. 4. Follow up on the official result of the CT angiogram. 5. Provide good fluid intake and monitor blood pressure closely. Avoid hypotension. 6. If CT angiogram is negative and patient's symptoms keep recurring, the patient may be a candidate for having cerebral angiogram. EMILIA
[2017-04-12] MEDS: ATORVASTATIN 80 MG PO SCH (20:13)
[2017-04-13] MEDS: ENOXAPARIN 40 MG/0.4 ML INJECTION SQ SCH (09:13)
[2017-04-13] MEDS: CALCIUM POLYCARBOPHIL 625 MG TABLET PO SCH (09:13)
[2017-04-13] MEDS: --POM--LISINOPRIL 5 MG TABLET PO SCH (09:14)
[2017-04-13] MEDS: SALINE FLUSH 10ml SYRINGE IVF PRN ×2 (09:16→21:07)
[2017-04-13] MEDS: ASPIRIN/DIPYRIDAMOLE 25 MG/200 MG CAPSULE PO SCH ×2 (09:16→21:04)
--- NOTE | 2017-04-13 09:57 | XRay Report ---
Indication: TIA Symptoms PROCEDURE: XR chest 1V: Encounter: Initial Comparison: April 10, 2017 FINDINGS: The lungs are clear. There is no abnormal airspace opacity, pleural effusion or pneumothorax identified. The heart size, pulmonary vasculature and mediastinum are within normal limits. No significant skeletal abnormality is seen. IMPRESSION: No acute cardiopulmonary abnormality. .
--- NOTE | 2017-04-13 09:59 | CT Scan Report ---
Indication: TIA Symptoms PROCEDURE: CT head/brain wo con: Encounter: Initial Comparison: Head CT dated April 10, 2017 Technique: Axial CT images through the head were performed without contrast. Iterative Reconstruction dose reducing technique was utilized. FINDINGS: The ventricles are of normal size, shape, and contour for the patient's age. There are scattered areas of low attenuation in the white matter which most likely represent changes from chronic microvascular ischemia. The brainstem, cerebellum, and cerebral hemispheres otherwise have a normal morphology and CT attenuation. There is no evidence of midline displacement. No hemorrhage, signs of acute territorial stroke, mass effect, mass lesions, or edema is evident. The visualized portions of the skull base, midface, and calvarium demonstrate no abnormality. The paranasal sinuses are well aerated and free of significant disease. The tympanic and mastoid cavities appear normal. IMPRESSION: No acute intracranial abnormality or hemorrhage. Stable head CT. There is a preliminary report by [employer] radiologic. .
--- NOTE | 2017-04-13 10:22 | CT Scan Report ---
Indication: tia PROCEDURE: CT angio head: Encounter: Initial Comparison: Brain MRI and CT head dated April 11, 2017 Technique: CT Head: Axial images were obtained through the head without and with intravenous contrast. CTA: Angiographic phase axial images were acquired through the entire head following intravenous contrast administration. Multiplanar 2-D reconstructions and maximum intensity projection images were produced for additional assessment. 3-D volume rendered images of the [place] were also produced by the technologist. Automated Exposure Control and Iterative Reconstruction dose reducing techniques were utilized. Contrast: Omnipaque 350 73mL Findings: CT head without and with contrast: The ventricles are of normal size, shape, and contour for the patient's age. Scattered low-attenuation white matter changes consistent with chronic microvascular ischemic disease. The brainstem, cerebellum, and cerebral hemispheres otherwise have a normal morphology and CT attenuation. No hemorrhage, mass effect, mass lesions, or edema is evident. No areas of abnormal enhancement are seen. The visualized portions of the skull base, sinuses, and calvarium demonstrate no abnormality. CTA head with intravenous contrast: The distal cervical, petrous, cavernous, and supraclinoid segments of the internal carotid arteries are widely patent without significant stenosis or other vascular abnormalities. The anterior, middle, and posterior cerebral arteries are also widely patent without significant stenosis or occlusion. origin of the left THERMIT WELDING MACHINE OPERATOR, a normal anatomic variant. No aneurysms, vascular malformations, flow-limiting stenoses, or other arterial abnormality are evident. The visualized portion of the dural sinuses and cortical veins are also well seen and show no definite stenosis or occlusion. Impression: 1. CT head: No acute intracranial abnormality. Scattered microvascular ischemic white matter disease. 2. CTA head: No aneurysms, vascular malformations, or flow limiting stenoses. There is a preliminary report by [employer]. .
--- NOTE | 2017-04-13 14:03 | Progress Note ---
- Date 04/13/17 Subjective: Paul is seen today in follow up. He is feeling well. No further episodes of weakness or paresthesias. He reports he is to follow up with neurology before dismissal tomorrow. D/W him that CTA was unremarkable. Objective Vital signs: Temperature 98.3 F 04/13/17 08:32 Pulse Rate 75 04/13/17 08:32 Respiratory Rate 12 04/13/17 08:32 Blood Pressure 130/59 04/13/17 08:32 Pulse Oximetry 95 04/13/17 08:32 Rhythm: Normal Sinus Rhythm Height/Weight/BMI: Height 1.78 m Weight 91.4 kg Body Mass Index 29.0 Comments: Tele reviewed. No acute ectopy. - Constitutional Present: no acute distress, well nourished, well developed, cooperative - Routine HEENT Exam Head: Present: normocephalic, atraumatic Eye: Present: EOMI, PERRL, normal accommodation ENT: Present: mucous membranes moist - Routine Respiratory Exam Present: CTA bilaterally. Absent: rales, rhonchi, crackles - Routine Cardiovascular Exam Present: RRR, S1, S2, no murmur - Routine Abdominal Exam Present: soft, normoactive bowel sounds, non distended, non tender - Routine Extremities Exam Present: no edema, non tender, full ROM - Routine Back/Spine/Pelvis Exam Back/Spine: Present: full ROM - Routine Musculoskeletal Exam Musculoskeletal: Present: no clubbing or cyanosis, normal strength, moving extremities well - Routine Skin Exam Present: intact, dry, warm - Routine Neurological Exam Present: alert, oriented X3, moving all extremities, normal speech. Absent: sensory deficit, motor deficit, abnormal gait - Routine Psychiatric Exam Present: normal affect, normal thought process, cooperative Results - Labs CBC & Chem 7: 04/11/17 17:49 04/11/17 17:49 - Imaging and Cardiology CTA head Additional comments: Impression: 1. CT head: No acute intracranial abnormality. Scattered microvascular ischemic white matter disease. 2. CTA head: No aneurysms, vascular malformations, or flow limiting stenoses. There is a preliminary report by [employer]. . Assessment and Plan (1) TIA (transient ischemic attack) Current visit: Yes Status: Acute Assessment and Plan: Assessment TIA-recurrent transient right-sided numbness Hypertension Diabetes Plan 04/13/16 No recurrence of sx. To see neurology in AM prior to dismissal. May need cerebral angiogram if sx recur. Could consider SHANE as well if further assessment is needed. Continue Aggrenox, Lisinopril, or statin. Labs are stable. BP are now controlled. ADA diet- A1c 6.1%. Potential DC home tomorrow. DVT Prophylaxis: Lovenox Resuscitation Status: Full Code - Physician Narrative Physician: Tomas Bishop MD Narrative: Date: 04/13/17 Time: 1605 I have independently evaluated and examined this patient. I reviewed the chart, the patient's history, and the PUBLIC TRANSPORTATION INSPECTOR/PA's documented findings as above. We discussed and formulated the assessment and plan as above with additions as below: Patient has had no numbness/weakness. Only complaint is boredom. Ambulating in [place]. NAD. CTAB. RRR. S/NT/ND +BS. No edema. No focal deficits. Continue to monitor. If no reoccurrence will d/w Dr. Rasmussen and dismiss soon. Hospital Course Summary Disclaimer: The visit summary below is not to be considered part of the above Progress Note. Hospital Course: 04/11/17-hospital readmission Patient was discharged earlier today and was readmitted this evening due to recurrence of full right-sided numbness with some weakness of the arm .Will change from Plavix to Aggrenox. Will get CTA of the brain. Will consult neurology. Continue Lipitor and Lisinopril. May need to consider evaluation for carotid intervention. 04/12/17 Dr. Rasmussen consulted. He recommends patient remain in the hospital until official read on CTA head is completed. Agrees with Aggrenox and Lovenox. Could consider Coumadin as an alternative treatment as well. If patient continues to have symptoms would consider cerebral angiogram. Continue patient on Aggrenox and Lovenox at this time, in addition to his Lipitor and lisinopril. Continue to monitor on telemetry. Plan 04/13/16 No recurrence of sx. To see neurology in AM prior to dismissal. May need cerebral angiogram if sx recur. Could consider SHANE as well if further assessment is needed. Continue Aggrenox, Lisinopril, or statin. Labs are stable. BP are now controlled. ADA diet- A1c 6.1%. Potential DC home tomorrow.
[2017-04-13] MEDS: MAG-AL + SIM ORAL LIQUID 30ml PO PRN (18:02)
[2017-04-13] MEDS ORDERED: WARFARIN 5 MG TABLET PO SCH (18:10)
[2017-04-13] MEDS ORDERED: ENOXAPARIN 100 MG/ML INJECTION SQ SCH (18:15)
[2017-04-13] MEDS: ATORVASTATIN 80 MG PO SCH (21:04)
[2017-04-14] MEDS: MAG-AL + SIM ORAL LIQUID 30ml PO PRN ×2 (00:27→06:14)
[2017-04-14 07:53] VITALS: BP 116/72; RESP 16; TEMP 97.3; O2SAT 93
[2017-04-14] MEDS: ASPIRIN/DIPYRIDAMOLE 25 MG/200 MG CAPSULE PO SCH (09:00)
[2017-04-14] MEDS: CALCIUM POLYCARBOPHIL 625 MG TABLET PO SCH (09:00)
[2017-04-14] MEDS: ENOXAPARIN 100 MG/ML INJECTION SQ SCH ×2 (09:01→16:14)
[2017-04-14] MEDS: --POM--LISINOPRIL 5 MG TABLET PO SCH (09:01)
[2017-04-14] MEDS ORDERED: CALCIUM CARBONATE Chewable 500mg TABLET PO PRN (09:11)
[2017-04-14] MEDS ORDERED: WARFARIN - PHARMACY CONSULT MC ONE (09:47)
--- NOTE | 2017-04-14 09:54 | Pharmacy Consult ---
Pharmacy Consult-Warfarin - Consult Information Warfarin consult noted by Dr Bishop for alf anticoagulation. Mr Abdi is currently being bridged with enoxaparin. Will give warfarin 5mg today and continue to monitor. Thank you.
[2017-04-14 10:03] VITALS: PULSE 73
[2017-04-14] MEDS ORDERED: WARFARIN 5 MG TABLET PO SCH (12:00)
[2017-04-14] MEDS ORDERED: ACETAMINOPHEN 500 MG TABLET PO PRN (12:34)
--- NOTE | 2017-04-14 13:00 | Discharge Summary ---
Discharge Information Date of admission: 04/11/17 18:46 Anticipated date of discharge: 04/14/17 Attending Physician: Tomas Bishop IV, MD Primary care physician: Beltran Ewing MD Consults: Consulting Provider: Maura Rasmussen - Discharge Diagnosis (1) TIA (transient ischemic attack) Status: Acute TIA-recurrent transient right-sided numbness Hypertension Prediabetes - Procedures Procedures: Patient: Paul Abdi MR#: [id number] : 1945 Age/Sex: 71 / M ADM Date: 04/11/17 Loc: MED 141-P DIS Date: = = = = = = = = = = = = = = = = = = = = = = = = = = = = = = = = = = = = = = = = = = = = = = = = = = = = = = = = = = = Date of Exam: 04/12/17 Indication: tia PROCEDURE: CT angio head: Findings: CT head without and with contrast: The ventricles are of normal size, shape, and contour for the patient's age. Scattered low-attenuation white matter changes consistent with chronic microvascular ischemic disease. The brainstem, cerebellum, and cerebral hemispheres otherwise have a normal morphology and CT attenuation. No hemorrhage, mass effect, mass lesions, or edema is evident. No areas of abnormal enhancement are seen. The visualized portions of the skull base, sinuses, and calvarium demonstrate no abnormality. CTA head with intravenous contrast: The distal cervical, petrous, cavernous, and supraclinoid segments of the internal carotid arteries are widely patent without significant stenosis or other vascular abnormalities. The anterior, middle, and posterior cerebral arteries are also widely patent without significant stenosis or occlusion. origin of the left DYE WORKER, a normal anatomic variant. No aneurysms, vascular malformations, flow-limiting stenoses, or other arterial abnormality are evident. The visualized portion of the dural sinuses and cortical veins are also well seen and show no definite stenosis or occlusion. Impression: 1. CT head: No acute intracranial abnormality. Scattered microvascular ischemic white matter disease. 2. CTA head: No aneurysms, vascular malformations, or flow limiting stenoses. - Laboratory Labs: Laboratory Tests 04/14/17 08:03 Stl C. diff Tox B Gene Negative - Radiology Radiology: Date of Exam: 04/12/17 Indication: tia PROCEDURE: CT angio head: Findings: CT head without and with contrast: The ventricles are of normal size, shape, and contour for the patient's age. Scattered low-attenuation white matter changes consistent with chronic microvascular ischemic disease. The brainstem, cerebellum, and cerebral hemispheres otherwise have a normal morphology and CT attenuation. No hemorrhage, mass effect, mass lesions, or edema is evident. No areas of abnormal enhancement are seen. The visualized portions of the skull base, sinuses, and calvarium demonstrate no abnormality. CTA head with intravenous contrast: The distal cervical, petrous, cavernous, and supraclinoid segments of the internal carotid arteries are widely patent without significant stenosis or other vascular abnormalities. The anterior, middle, and posterior cerebral arteries are also widely patent without significant stenosis or occlusion. origin of the left DYE WORKER, a normal anatomic variant. No aneurysms, vascular malformations, flow-limiting stenoses, or other arterial abnormality are evident. The visualized portion of the dural sinuses and cortical veins are also well seen and show no definite stenosis or occlusion. Impression: 1. CT head: No acute intracranial abnormality. Scattered microvascular ischemic white matter disease. 2. CTA head: No aneurysms, vascular malformations, or flow limiting stenoses. History of Present Illness HPI: 71 yo male admitted 04/10 with TIA. He was dismissed earlier today. While here he had an 1) MRI with no acute intracranial abnormality or infarct. Advanced chronic microvascular ischemia and white matter disease. 2) Echo and results are pending. 3) Carotid Doppler showed 40-50% stenosis of the left proximal ICA. Patient was started on Lipitor 80 mg daily and Plavix 75 mg daily for secondary prevention given that he was taking aspirin daily at the time symptoms occurred. He was started on lisinopril 5 mg for blood pressure control. Not long after he got home, he had a reoccurrence of right-side numbness. It started in his right hand and went up to his shoulder. Then it went to his right leg and around his mouth. It lasted about 15 minutes. He could not raise his right arm at that time. Objective Vital signs: Temperature 97.3 F 04/14/17 07:50 Pulse Rate 73 04/14/17 08:00 Respiratory Rate 16 04/14/17 07:50 Blood Pressure 116/72 04/14/17 07:50 Pulse Oximetry 93 04/14/17 07:50 Rhythm: Normal Sinus Rhythm Height/Weight/BMI: Height 1.78 m Weight 90.5 kg Body Mass Index 29.0 - Constitutional Present: no acute distress, well nourished, well developed - Routine HEENT Exam Head: Present: normocephalic, atraumatic - Routine Respiratory Exam Present: CTA bilaterally. Absent: wheezes - Routine Cardiovascular Exam Present: RRR, no murmur - Routine Abdominal Exam Present: soft, non distended, non tender - Routine Extremities Exam Present: no edema, normal capillary refill - Routine Skin Exam Present: dry, warm - Routine Neurological Exam Present: alert, oriented X3 - Routine Lymphatic Exam Lymphatic: Absent: adenopathy - Routine Psychiatric Exam Present: normal affect, cooperative Hospital Course This is a general summary of the patient's hospital course. For more details refer to the complete medical record. Hospital course: 04/11/17-hospital readmission Patient was discharged earlier today and was readmitted this evening due to recurrence of full right-sided numbness with some weakness of the arm .Will change from Plavix to Aggrenox. Will get CTA of the brain. Will consult neurology. Continue Lipitor and Lisinopril. May need to consider evaluation for carotid intervention. 04/12/17 Dr. Rasmussen consulted. He recommends patient remain in the hospital until official read on CTA head is completed. Agrees with Aggrenox and Lovenox. Could consider Coumadin as an alternative treatment as well. If patient continues to have symptoms would consider cerebral angiogram. Continue patient on Aggrenox and Lovenox at this time, in addition to his Lipitor and lisinopril. Continue to monitor on telemetry. 04/13/17 Patient had recurrence of his symptoms although reports it only lasted 10 minutes and it wasn't as significant as previous episodes. Aggrenox DC'd and pt started on warfarin. To see neurology in AM prior to dismissal. May need cerebral angiogram if sx recur. Continue Lisinopril and statin. ADA diet- A1c 6.1%. Potential DC home tomorrow. 04/14/17 Patient developed some diarrhea overnight. C diff testing was negative. Dr. Rasmussen saw patient and agrees with warfarin. He recommends further workup with cerebral angiogram and EEG should he continue to have symptoms. He would like to see patient back in 2 weeks. Patient does not need to report to the ER if his symptoms are similar to the symptoms he has been having, however, if he has new symptoms or they persist, he is to seek medical treatment. Will have him continue Lovenox 1.5 mg/kg daily until his Coumadin is therapeutic with Dr. Ewing to manage. He'll come to infusion therapy to receive his Lovenox and to draw his INR. He had 5 mg Coumadin yesterday and 5 mg today. On discharge his INR was 1.22. He was sent with prescriptions for coumadin 5 mg and 1 mg. He has follow-up appointment tomorrow with Dr. Ewing. Time spent with patient: discharge greater than 30 minutes Resuscitation Status: Full Code Discharge Plan - Discharge Disposition Discharge Date: 04/14/17 Disposition: 01 Discharged Home, Self-Care *Condition: Stable Reason For Visit (Visit label in EMR): tia - Discharge Medications *Discharge Medications: New Enoxaparin [Lovenox] 135 mg SQ DAILY #5 syringe Warfarin Sodium [Coumadin] 1 mg PO NOTE #45 tab # Warfarin Protocol # [Coumadin Protocol] 5 mg PO DAILY #10 misc Continue Lactobacillus Acidophilus [Probiotic] 1 cap PO DAILY Calcium Polycarbophil [Fiber] 625 mg PO DAILY Atorvastatin [Lipitor] 80 mg PO HS #30 tab Lisinopril [Prinivil] 5 mg PO DAILY #30 tab Discontinued Clopidogrel [Plavix] 75 mg PO DAILY #30 tab - Discharge Packet/Instructions *Diet: As discussed with dietitian. *Activity: As tolerated *Pain Management/Treatment: n/a *Wound Care: n/a Additional Instructions: You should stop the Plavix (clopidogrel) that was previously prescribed as coumadin (warfarin) will take the place of this medication. Continue lisinopril and atorvastatin. *Expected Signs/Symptoms: You may have recurrence of your right sided symptoms. If they are lasting significantly longer than previously or if you have new symptoms such as slurred speech, balance issues, severe headache or change in vision, you need to seek medical care. If you continue to have the same symptoms occur as what you have been experiencing, you do not need to go to ER. Dr. Rasmussen will discuss doing further testing at your follow up visit with him in 2 wks if you are continuing to have the same symptoms. *Notify Physician if: you have new or worsening symptoms. *During Business Hours Contact: Dr Ewing's office *After Business Hours Contact: [facility] at [phone] and ask for the on-call physician *Pending Lab/Results: No Pending Lab - Referrals/Follow Up *Referrals/Follow Up: Maura Rasmussen MD [Physician] - 2 Weeks Beltran Ewing MD [Family Provider] - (keep appointment for tomorrow. ) - Patient Handouts Patient Handouts: [facility] [place] Primary Care Coumadin Vitamin K, Warfarin (By mouth), Enoxaparin (By injection) (Lovenox), Transient Ischemic Attack (DC) - Dismissal Complete Discharge Instructions are:: Incomplete Physician Narrative - Narrative Physician: Tomas Bishop MD Attestation Narrative: Date: 04/14/17 Time: 1710 I have independently evaluated and examined this patient. I reviewed the chart, the patient's history, and the BALANCE BRIDGE ASSEMBLER/PA's documented findings as above. We discussed and formulated the assessment and plan as above with additions as below: Mr. Abdi is sitting on the side of his bed. He is having a headache. He points to the top of his head when asked where it hurts. It is getting better w / Tylenol. He says this is his typical headache that he has had off-and-on for years. He had repeat numbness in his hand and arm yesterday. He says it was not as significant as his previous issues. He was switched to Lovenox bridging to warfarin. He understands he needs to continue both meds and arrangements have been made for him to get the Lovenox injections. He will f/u with Dr. Ewing tomorrow and Dr. Rasmussen in 2 weeks. He was instructed to return to ER if symptoms are worse or persist for longer. One of his daughters is present. They both voice understanding of the plan. NAD. Coarse. RRR w/o murmur. S/NT/ND +BS. No edema. SIMPSON. Lovenox/warfarin. f/u with Drs. Ewing and Grady. If symptoms repeat but are not more severe he will notify them and may need a cerebral angiogram. If symptoms worse, he will go to ER.
--- NOTE | 2017-04-14 14:15 | Progress Note ---
DATE 04/14/[address] Bishop CHIEF COMPLAINT Right-sided weakness and numbness. HISTORY OF PRESENT ILLNESS The patient had one more episode of traveling numbness affecting his right hand up to the elbow, then moving down to his leg. This lasted for about 15 minutes , during which he had some heaviness on the right side. His medication was changed from the Aggrenox to Coumadin and Lovenox. The patient has done well since then. He has had no new spells. He has been complaining of a new headache earlier today. This has been treated with Tylenol. The patient is overall stable. His headache is not severe at the present time and he has no new focal neurological symptoms. EXAM His exam continues to be normal. ASSESSMENT 1. Crescendo TIA with recurrent episode of right-sided numbness and weakness. His current workup including MRI, carotid Doppler and echo has been unremarkable. 2. We cannot rule out episodes of simple partial seizure which are less likely in this clinical setting. PLAN 1. Continue Coumadin and keep the INR between 2 and 3. This can be monitored by primary care physician in the outpatient setting. 2. Follow up with Dr. Rasmussen in 2 weeks. 3. Consider having EEG testing if having more spells. 4. The patient may need to have a cerebral angiogram if his episode continues with no evidence of other secondary causes for numbness and weakness. 5. Monitor patient closely for any headache exacerbation before discharge and consider having a CT of the head if headache continues to progress. EMILIA
== END 2017-04-14 16:35 | disposition home or self-care (01) ==
LOC: MED 17:04 → ED 17:04 → MED 19:25
PROVIDERS: ADMIT Hospitalist; ATTEND Hospitalist